=== PATIENT | female | born 1935 | race Caucasian/White ===

== ENCOUNTER 2018-03-29 17:36 | Inpatient (IN) | payer OTHER, MEDICARE ==
[~2018-03-29] VITALS: Ht 157.5 cm; Wt 42.2 kg
[2018-03-29 17:59] VITALS: Ht 157.5 cm; Wt 42.2 kg
[2018-03-29 19:38] LABS: PLATELET COUNT 288 x10^3mcL (130-400)
[2018-03-29 19:40] LABS: BASOPHIL % 0 % (0-2); RED CELL DISTRIBUTION WIDTH 14.9 % (11.5-14.5)
[2018-03-29 19:50] LABS: ALKALINE PHOSPHATASE 72 U/L (46-116); ALT/SGPT 6 U/L (14-59); AST/SGOT 17 U/L (15-37); BILIRUBIN TOTAL 0.37 mg/dL (0.20-1.00); CARBON DIOXIDE 34.7 mmol/L (21-32); CHLORIDE SERUM 120 mmol/L (98-107); CREATININE SERUM 1.6 mg/dL (0.6-1.0); GLUCOSE SERUM 145 mg/dL (74-106); MAGNESIUM 2.4 mg/dL (1.8-2.4); TOTAL PROTEIN, SERUM 6.7 g/dL (6.4-8.2)
[2018-03-29 19:52] LABS: ALBUMIN 1.9 g/dL (3.4-5.0); SODIUM SERUM 160 mmol/L (136-145)
[2018-03-29 21:34] LABS: UA SPECIFIC GRAVITY >=1.030 (1.005-1.035); microscopic required? YES; urine erythrocyte NEGATIVE (NEGATIVE)
[2018-03-29] MEDS ORDERED: LEVOTHYROXIN0.025 M2 PO (22:43)
[2018-03-29] MEDS ORDERED: CALCIUM CITRAT250 M1 PO (22:43)
[2018-03-29] MEDS ORDERED: CITALOPRAM HYDR10 M1 PO (22:43)
[2018-03-29] MEDS ORDERED: SINEMET 25-1001 TAB PO (22:43)
[2018-03-29] MEDS ORDERED: SENNA8.6 M2 PO (22:44)
[2018-03-29] MEDS ORDERED: OMEPRAZOLE40 M1 PO (22:44)
[2018-03-29] MEDS ORDERED: SEROQUEL XR50 MG PO (22:44)
[2018-03-29 23:19] VITALS: BP 115/35
[2018-03-30 00:02] LABS: PHOSPHOROUS 4.5 mg/dL (2.5-4.9)
[2018-03-30 00:04] LABS: CHOLESTEROL/HDL RATIO 4.9
[2018-03-30 00:16] LABS: FREE T4 1.01 ng/dL (0.76-1.46); FREE THYROXINE INDEX 1.9 ug/dL (1.4-4.5)
[2018-03-30 00:38] LABS: T3 TOTAL 0.26 ng/mL
[2018-03-30 05:42] VITALS: BP 108/57
[2018-03-30 08:00] VITALS: BP 120/53
[2018-03-30 08:14] LABS: BASOPHIL % 0.2 % (0-2); PLATELET COUNT 266 x10^3mcL (130-400); RED CELL DISTRIBUTION WIDTH 14.9 % (11.5-14.5)
[2018-03-30 08:22] LABS: CALCIUM 9.2 mg/dL (8.5-10.1); CARBON DIOXIDE 33.3 mmol/L (21-32); CHLORIDE SERUM 123 mmol/L (98-107); CREATININE SERUM 1.2 mg/dL (0.6-1.0); GLUCOSE SERUM 100 mg/dL (74-106); MAGNESIUM 2.1 mg/dL (1.8-2.4); PHOSPHOROUS 3.6 mg/dL (2.5-4.9); POTASSIUM SERUM 4.1 mmol/L (3.5-5.1)
[2018-03-30 08:25] LABS: SODIUM SERUM 163 mmol/L (136-145)
[2018-03-30 12:27] VITALS: BP 104/43
[2018-03-30 12:36] VITALS: BP 120/53
[2018-03-30 16:05] LABS: CALCIUM 8.9 mg/dL (8.5-10.1); CARBON DIOXIDE 33.7 mmol/L (21-32); CHLORIDE SERUM 123 mmol/L (98-107); CREATININE SERUM 1.2 mg/dL (0.6-1.0); GLUCOSE SERUM 187 mg/dL (74-106); POTASSIUM SERUM 4.1 mmol/L (3.5-5.1)
[2018-03-30 16:17] LABS: SODIUM SERUM 161 mmol/L (136-145)
[2018-03-30 16:55] VITALS: BP 142/40
[2018-03-30 20:58] VITALS: BP 101/46
[2018-03-30 22:32] LABS: CALCIUM 9.3 mg/dL (8.5-10.1); CARBON DIOXIDE 31.6 mmol/L (21-32); CHLORIDE SERUM 120 mmol/L (98-107); CREATININE SERUM 1.2 mg/dL (0.6-1.0); GLUCOSE SERUM 126 mg/dL (74-106); POTASSIUM SERUM 3.9 mmol/L (3.5-5.1); SODIUM SERUM 157 mmol/L (136-145)
[2018-03-31 04:31] LABS: BASOPHIL % 0.4 % (0-2); PLATELET COUNT 223 x10^3mcL (130-400)
[2018-03-31 04:38] LABS: CALCIUM 8.9 mg/dL (8.5-10.1); CARBON DIOXIDE 33.1 mmol/L (21-32); CHLORIDE SERUM 116 mmol/L (98-107); CREATININE SERUM 1.2 mg/dL (0.6-1.0); GLUCOSE SERUM 118 mg/dL (74-106); MAGNESIUM 1.8 mg/dL (1.8-2.4); PHOSPHOROUS 2.2 mg/dL (2.5-4.9); POTASSIUM SERUM 3.3 mmol/L (3.5-5.1); SODIUM SERUM 154 mmol/L (136-145)
[2018-03-31 06:06] VITALS: BP 108/67
[2018-03-31 07:08] LABS: AMPHETAMINE QUAL UR NONE DETECTED (See below)
[2018-03-31 08:02] VITALS: BP 113/44
[2018-03-31 10:25] LABS: CALCIUM 9.4 mg/dL (8.5-10.1); CARBON DIOXIDE 31.6 mmol/L (21-32); CHLORIDE SERUM 116 mmol/L (98-107); CREATININE SERUM 1.2 mg/dL (0.6-1.0); GLUCOSE SERUM 110 mg/dL (74-106); POTASSIUM SERUM 4.3 mmol/L (3.5-5.1); SODIUM SERUM 151 mmol/L (136-145)
[2018-03-31 11:57] VITALS: BP 70/25
[2018-03-31 16:47] VITALS: BP 93/35
[2018-03-31 22:00] VITALS: BP 102/40
[2018-04-01 05:19] VITALS: BP 107/43
[2018-04-01 06:45] LABS: BASOPHIL % 0.2 % (0-2); PLATELET COUNT 218 x10^3mcL (130-400)
[2018-04-01 06:57] LABS: CALCIUM 9.4 mg/dL (8.5-10.1); CARBON DIOXIDE 31.6 mmol/L (21-32); CHLORIDE SERUM 113 mmol/L (98-107); CREATININE SERUM 1.1 mg/dL (0.6-1.0); GLUCOSE SERUM 89 mg/dL (74-106); MAGNESIUM 1.6 mg/dL (1.8-2.4); SODIUM SERUM 146 mmol/L (136-145)
[2018-04-01 07:12] LABS: RED CELL DISTRIBUTION WIDTH 14.9 % (11.5-14.5)
[2018-04-01 08:30] VITALS: BP 100/38
[2018-04-01 12:45] VITALS: BP 134/48
[2018-04-01 17:35] VITALS: BP 112/41
[2018-04-01 21:07] VITALS: BP 100/42
[2018-04-02 06:09] VITALS: BP 115/53
[2018-04-02 09:43] VITALS: BP 106/58
[2018-04-02 12:31] VITALS: BP 106/58
[2018-04-02 13:32] VITALS: BP 100/33
[2018-04-02 17:47] VITALS: BP 122/50
[2018-04-02 20:45] VITALS: BP 106/56
[2018-04-03 06:03] VITALS: BP 102/64
[2018-04-03 06:42] LABS: BASOPHIL % 0.3 % (0-2); PLATELET COUNT 232 x10^3mcL (130-400); RED CELL DISTRIBUTION WIDTH 14.2 % (11.5-14.5)
[2018-04-03 07:01] LABS: CALCIUM 8.8 mg/dL (8.5-10.1); CARBON DIOXIDE 35.3 mmol/L (21-32); CHLORIDE SERUM 103 mmol/L (98-107); CREATININE SERUM 0.9 mg/dL (0.6-1.0); GLUCOSE SERUM 139 mg/dL (74-106); MAGNESIUM 1.9 mg/dL (1.8-2.4); POTASSIUM SERUM 3.9 mmol/L (3.5-5.1); SODIUM SERUM 141 mmol/L (136-145)
[2018-04-03 09:22] VITALS: BP 97/35
[2018-04-03 13:00] VITALS: BP 95/35
[2018-04-03 16:52] VITALS: BP 104/34
[2018-04-03 22:13] VITALS: BP 112/46
[2018-04-04 05:19] VITALS: BP 105/48
[2018-04-04 08:30] VITALS: BP 115/49
[2018-04-04 12:33] VITALS: BP 110/53
[2018-04-04 16:05] VITALS: BP 112/59
[2018-04-04 21:13] VITALS: BP 100/48
[2018-04-05 05:18] VITALS: BP 107/45
[2018-04-05 07:56] LABS: CALCIUM 8.6 mg/dL (8.5-10.1); CARBON DIOXIDE 34.6 mmol/L (21-32); CHLORIDE SERUM 103 mmol/L (98-107); CREATININE SERUM 0.7 mg/dL (0.6-1.0); GLUCOSE SERUM 111 mg/dL (74-106); POTASSIUM SERUM 4.6 mmol/L (3.5-5.1); SODIUM SERUM 139 mmol/L (136-145)
[2018-04-05 08:30] VITALS: BP 116/33
[2018-04-05 09:45] LABS: BASOPHIL % 0.2 % (0-2); PLATELET COUNT 272 x10^3mcL (130-400)
[2018-04-05 12:30] VITALS: BP 99/36
[2018-04-05 17:00] VITALS: BP 107/43
[2018-04-05 21:23] VITALS: BP 111/39
[2018-04-06 05:29] VITALS: BP 118/52
[2018-04-06 07:32] LABS: CALCIUM 8.6 mg/dL (8.5-10.1); CARBON DIOXIDE 36.6 mmol/L (21-32); CHLORIDE SERUM 102 mmol/L (98-107); CREATININE SERUM 0.7 mg/dL (0.6-1.0); GLUCOSE SERUM 99 mg/dL (74-106); POTASSIUM SERUM 4.2 mmol/L (3.5-5.1); SODIUM SERUM 140 mmol/L (136-145)
[2018-04-06 07:34] LABS: BASOPHIL % 0.4 % (0-2); PLATELET COUNT 326 x10^3mcL (130-400); RED CELL DISTRIBUTION WIDTH 14.1 % (11.5-14.5)
[2018-04-06 08:30] VITALS: BP 115/44
[2018-04-06 13:00] VITALS: BP 105/43
[2018-04-06 17:00] VITALS: BP 102/47
[2018-04-06 20:35] VITALS: BP 124/76
[2018-04-07 05:31] VITALS: BP 113/41
[2018-04-07 06:26] LABS: CALCIUM 8.8 mg/dL (8.5-10.1); CARBON DIOXIDE 33.9 mmol/L (21-32); CHLORIDE SERUM 103 mmol/L (98-107); CREATININE SERUM 0.7 mg/dL (0.6-1.0); GLUCOSE SERUM 124 mg/dL (74-106); POTASSIUM SERUM 4.4 mmol/L (3.5-5.1); SODIUM SERUM 140 mmol/L (136-145)
[2018-04-07 06:57] LABS: BASOPHIL % 0.5 % (0-2); PLATELET COUNT 385 x10^3mcL (130-400); RED CELL DISTRIBUTION WIDTH 14.4 % (11.5-14.5)
[2018-04-07 08:59] VITALS: BP 119/63
[2018-04-07 12:25] VITALS: BP 128/55
[2018-04-07 17:00] VITALS: BP 113/42
[2018-04-07 21:14] VITALS: BP 107/46
[2018-04-08 05:39] VITALS: BP 114/44
[2018-04-08 06:31] LABS: CALCIUM 8.6 mg/dL (8.5-10.1); CARBON DIOXIDE 33.3 mmol/L (21-32); CHLORIDE SERUM 101 mmol/L (98-107); CREATININE SERUM 0.6 mg/dL (0.6-1.0); GLUCOSE SERUM 114 mg/dL (74-106); POTASSIUM SERUM 4.1 mmol/L (3.5-5.1); SODIUM SERUM 139 mmol/L (136-145)
[2018-04-08 06:49] LABS: BASOPHIL % 0.4 % (0-2); RED CELL DISTRIBUTION WIDTH 13.9 % (11.5-14.5)
[2018-04-08 07:22] LABS: PLATELET COUNT 447 x10^3mcL (130-400)
[2018-04-08 08:07] VITALS: BP 107/53
[2018-04-08 15:06] VITALS: BP 107/53
[2018-04-08 16:52] VITALS: BP 110/49
== END 2018-04-08 18:07 | DRG 56 ==
LOC: ED 17:36 → DU 22:06 → MU 22:06 → DU 23:00 → MU 04-07 10:17
PROVIDERS: Emergency Medicine; Family Medicine; General Practice; ADMIT Internal Medicine
DX: G20 Parkinson's disease (principal); G93.41 Metabolic encephalopathy; E43 Unspecified severe protein-calorie malnutrition; J18.9 Pneumonia, unspecified organism; N39.0 Urinary tract infection, site not specified; N17.9 Acute kidney failure, unspecified; E87.0 Hyperosmolality and hypernatremia; Z68.1 Body mass index [BMI] 19.9 or less, adult; E86.0 Dehydration; E11.9 Type 2 diabetes mellitus without complications; L89.152 Pressure ulcer of sacral region, stage 2; R13.10 Dysphagia, unspecified; E03.9 Hypothyroidism, unspecified; Z66 Do not resuscitate; F02.80 Dementia in other diseases classified elsewhere, unspecified severity, without behavioral disturbance, psychotic disturbance, mood disturbance, and anxiety
CPT/HCPCS: 82962; 83880; 84439; 87804; 92526-GN; 92610; 92610-GN; 97110-GP; 97112-GP; 97530-GP; J0696; J1956; J3475; J3490; J7030; J7042; J7070; J7620; Q0092